=== PATIENT | male | born 1980 | race Caucasian/White ===

== ENCOUNTER → 2017-07-17 | Outpatient (CLI) | payer OTHER ==
[~2017-07-17] MED LIST: DEXL60CA4 PO
[2017-07-17 10:04] LABS: CHOLESTEROL/HDL RATIO 3.8
== END | disposition home or self-care (01) ==
LOC: C.LAB1850 07:02
PROVIDERS: ATTEND Internal Medicine Cardiovascular Disease
DX: Z00.00 Encounter for general adult medical examination without abnormal findings (principal)